=== PATIENT | female | born 2005 | race Asian ===

== ENCOUNTER 2024-01-02 01:35 | Emergency (ER) | payer BC, SELFPAY ==
[2024-01-02 01:47] VITALS: BP 162/98
--- NOTE | 2024-01-02 01:53 | ED.GENMED ---
History of Present Illness
General
Chief Complaint: Anxiety
Source: patient and family
Exam Limitations: none
Time Seen by Provider: 01/02/24 01:47
Nursing documentation reviewed up to this point in time: agreed with
History of Present Illness
History of Present Illness:
Patient is a 18-year-old female who presents to the emergency department complaining of an anxiety attack. Patient has had history of issues with anxiety and has seen therapist in the past but has not required medication and is on no medication at
this time. The trigger seem to be her grandparents who are in their 80s and her grandfather has dementia. The grandparents are living with the family and have them repeated arguments. Patient is in college studying criminal justice at [employer].
Patient denies street drugs or stimulants. Patient denies any pain. Patient denies any GI or symptoms. Patient denies any suicidal ideation or plan.
Past History
Past History
ED Past Medical History: Psychiatric (Anxiety)
Social History
Tobacco: Non-smoker
Living: with family
Review of Systems
Review of Systems
All Other Systems: Not applicable
Phy Exam
Physical Exam
Physical Exam:
Physical Exam
General: moderate distress, alert and crying, well nourished, well hydrated
HENT: Normocephalic, supple with no lymphadenopathy, no thyromegaly
Eyes: Clear sclera, conjuctiva without injection
Heart: Regular rhythm and rate. No S3, S4. No murmur.
Lungs: No respiratory distress, no stridor, lung sounds clear and equal bilaterally
Abdomen: Soft, nontender, no organomegaly, BS good
Neuro: Alert and oriented x 3, CN II - XII intact, no motor focality, no cerebellar dysfunction
Skin: no rash
Psychiatric: well kept. interactive and cooperative but crying and obviously upset and anxious
Extremities: No edema, cyanosis, tenderness
Course
Orders/Labs/Results
Orders:
Orders
01/02/24 01:52
Lorazepam [Ativan] 1 mg PO NOW STA
01/02/24 02:19
Crisis Consult Urgent
Reason for Consult: anxiety
Vital Signs
Initial and Last Documented VS:
Initial Vital Signs
Temp Pulse Resp BP Pulse Ox
99.1 F 109 18 162/98 98
01/02/24 01:47 01/02/24 01:47 01/02/24 01:47 01/02/24 01:47 01/02/24 01:47
Last Documented Vital Signs
Temp Pulse Resp BP Pulse Ox
99.1 F 109 18 162/98 98
01/02/24 01:47 01/02/24 01:47 01/02/24 01:47 01/02/24 01:47 01/02/24 01:47
*Pulse Oximetry
Patient hypoxic: no
*EKG
Interpreted by ED Provider?: NA
*Deputy Sheriff Building Guard Interpretation
Rate: Deputy Sheriff Building Guard- N/A
*Critical Care Note
Total Time (30-74mins, 75-104mins- exclusive of procedures): Not Applicable
Update Note
Update Note:
Patient is doing much better at this time. Awaiting crisis consult. I do not believe the patient requires medication at this time but does require direction for therapy. Patient may need medication in the future. Seems that these are life
stresses due to the her grandfathers insomnia and dementia.
ED Attending Note
-
Portions of this chart may have been created with voice recognition software.� Occasional wrong word or��sound alike� substitutions may have occurred due to the inherent limitations of voice recognition software.
Discharge Plan
Departure
Patient Status:: Crisis
Patient with high blood pressure during this ER visit?: No
Condition: Good
Covid-19: Not Applicable
Discharge Problem:
Anxiety attack
Instructions: Anxiety, Adult (DC), Generalized Anxiety Disorder (DC)
Activity Restrictions/Additional Instructions:
Follow recommendations from crisis. Any problems please return.
Interventions
Interventions:
*Risk Screen - Suicide Last Done: 01/02/24 01:39
*General Assessment Last Done: 01/02/24 01:47
*Neglect/Abuse Screening Last Done: 01/02/24 01:51
ED- Fall Risk Assessment Last Done: 01/02/24 01:53
*ED COVID-19 Vaccine History Last Done: 01/02/24 01:46
ED-Psychological Assessment Last Done: 01/02/24 01:48
Discharge Date and Time
Print Language: ALBANIAN
[2024-01-02] MEDS: ATIVAN 1 MG PO (01:55)
[2024-01-02 02:00] VITALS: BP 156/100
[2024-01-02 03:00] VITALS: BP 147/99
[2024-01-02 03:33] VITALS: BMI 19.9
[2024-01-02 03:35] VITALS: BP 133/94
== END 2024-01-02 03:30 | disposition home or self-care (01) ==
LOC: EMR 01:35
PROVIDERS: EMERGENCY PHYSICIAN Emergency Medicine; FAMILY PHYSICIAN Pediatrics
DX: F41.0 Panic disorder [episodic paroxysmal anxiety] (principal)
CPT/HCPCS: 99283